=== PATIENT | male | born 1980 | race Caucasian/White ===

== ENCOUNTER 2022-08-18 10:47 | Observation (INO) | payer BC ==
[2022-08-18] MEDS ORDERED: SODIUM CHLORIDE 0.9% 500 ML INFUS.BAG IV ONE ×2 (11:41→14:55)
[2022-08-18 12:09] LABS: VENOUS BASE EXCESS -1.8 mmol/L (-2-2); VENOUS O2 SATURATION 38.9 % (70-80); VENOUS PCO2 51.5 mmHg (38-52); VENOUS PH 7.307 (7.310-7.410)
[2022-08-18 12:19] LABS: BASO % 0.7 % (0-2.0); EOS % 0.4 % (0-4.5); HEMATOCRIT 42.1 % (35.4-49); HEMOGLOBIN 13.7 GM/dL (11.7-16.9); LYMPH % 26.7 % (8-40); MCHC 32.6 g/dl (32.0-35.9); MEAN CELL VOLUME 85.9 fl (80-96); MEAN PLT VOLUME 9.6 fl (7.5-11.1); MONO % 8.3 % (3.8-10.2); NEUT % 63.9 % (42.8-82.8); PLATELET COUNT 204 10^3/uL (134-434); WHITE BLOOD COUNT 6.6 K/mm3 (4.0-10.0)
[2022-08-18 12:41] LABS: PH,URINE 5.5 (5.0-8.0); URINE APPEARANCE CLEAR; URINE BILIRUBIN NEGATIVE (NEGATIVE); URINE COLOR YELLOW; URINE GLUCOSE (UA) 3+ (NEGATIVE); URINE KETONE 1+ (NEGATIVE); URINE LEUK ESTERASE NEGATIVE (NEGATIVE); URINE NITRITE NEGATIVE (NEGATIVE); URINE PROTEIN NEGATIVE (NEGATIVE); URINE UROBILINOGEN 0.2 mg/dL (0.2-1.0)
[2022-08-18 12:42] LABS: CHLORIDE 94 mmol/L (98-107); SODIUM 136 mmol/L (136-145)
[2022-08-18 12:44] LABS: ALBUMIN 4.1 g/dl (3.4-5.0); ANION GAP 16 MMOL/L (8-16); CALCIUM 9.7 mg/dL (8.5-10.1); CO2 26 mmol/L (21-32)
[2022-08-18 12:45] LABS: BLOOD UREA NITROGEN 21.6 mg/dL (7-18)
[2022-08-18 12:47] LABS: CREATININE 1.4 mg/dL (0.55-1.3)
[2022-08-18 12:48] LABS: SGOT/AST 27 U/L (15-37); SGPT/ALT 57 U/L (13-61)
[2022-08-18 12:49] LABS: BILIRUBIN,TOTAL 0.7 mg/dL (0.2-1); TOT PROT 7.7 g/dl (6.4-8.2)
[2022-08-18 12:50] LABS: ALK PHOS 106 U/L (45-117)
[2022-08-18 12:57] LABS: GLUCOSE,RANDOM 707 mg/dL (74-106)
[2022-08-18] MEDS ORDERED: INSULIN (LEVEMIR) 100 UNITS/ML UNITS SQ ONE ×2 (14:56→16:04)
[2022-08-18 15:12] LABS: LDL CHOLESTEROL (ONLY SJRH) 165 mg/dL (5-100); TRIGLYCERIDES 377 mg/dL (0-150)
[2022-08-18 15:14] LABS: HDL CHOLESTEROL 26 mg/dL (40-60)
[2022-08-18 15:15] LABS: CHOLESTEROL 247 mg/dL (50-200)
[2022-08-18] MEDS ORDERED: METOCLOPRAMIDE HCL INJECTION 10 MG/2 ML VIAL IVPUSH PRN (15:37)
[2022-08-18] MEDS ORDERED: LACTATED RINGERS SOLUTION 1,000 ML/1,000 ML INFUS.BAG IV SCH (16:30)
[2022-08-18] MEDS: INSULIN SLIDING SCALE (NOVOLOG) 1 VIAL SQ SCH ×2 (19:20→22:25)
[2022-08-18 20:12] LABS: CALCIUM 8.8 mg/dL (8.5-10.1)
[2022-08-18 20:13] LABS: BLOOD UREA NITROGEN 15.1 mg/dL (7-18)
[2022-08-18 20:16] LABS: CREATININE 1.1 mg/dL (0.55-1.3)
[2022-08-18] MEDS: HEPARIN NA (PORCINE) 5,000 UNITS/ML 1ML VIAL SQ SCH (22:26)
[2022-08-18 23:16] LABS: MAGNESIUM 1.9 mg/dL (1.8-2.4)
[2022-08-19 03:22] VITALS: RESP 20
[2022-08-19 03:32] VITALS: BMI 35.4
[2022-08-19] MEDS: HEPARIN NA (PORCINE) 5,000 UNITS/ML 1ML VIAL SQ SCH ×2 (06:57→14:55)
[2022-08-19] MEDS: INSULIN SLIDING SCALE (NOVOLOG) 1 VIAL SQ SCH ×3 (06:57→16:54)
[2022-08-19] MEDS ORDERED: INSULIN (LEVEMIR) 100 UNITS/ML UNITS SQ SCH (09:00)
[2022-08-19 09:44] LABS: BASO % 0.7 % (0-2.0); EOS % 1.7 % (0-4.5); HEMATOCRIT 40.5 % (35.4-49); LYMPH % 39.8 % (8-40); MCH 27.5 pg (25.7-33.7); MCHC 32.1 g/dl (32.0-35.9); MEAN CELL VOLUME 85.6 fl (80-96); MEAN PLT VOLUME 10.1 fl (7.5-11.1); MONO % 8.3 % (3.8-10.2); NEUT % 49.5 % (42.8-82.8); PLATELET COUNT 207 10^3/uL (134-434); RBC 4.73 M/mm3 (4.00-5.60); RDW 12.9 % (11.9-15.9); WHITE BLOOD COUNT 5.8 K/mm3 (4.0-10.0)
[2022-08-19 10:22] LABS: ALBUMIN 3.4 g/dl (3.4-5.0); BLOOD UREA NITROGEN 14.5 mg/dL (7-18); MAGNESIUM 1.9 mg/dL (1.8-2.4)
[2022-08-19 10:23] LABS: PHOSPHOROUS 3.2 mg/dL (2.5-4.9)
[2022-08-19 10:24] LABS: BILIRUBIN,TOTAL 0.9 mg/dL (0.2-1); TOT PROT 6.8 g/dl (6.4-8.2)
[2022-08-19 15:47] VITALS: BP 127/77; PULSE 84; TEMP 97.6
[2022-08-19] MEDS ORDERED: ATORVASTATIN CA 40 MG TABLET (FP) PO SCH (22:00)
== END 2022-08-19 17:44 | disposition home or self-care (01) ==
LOC: JER 10:47 → JERBED 14:08 → UNDOADMOB 14:08 → INTOOBSV 14:08 → JERBED 15:37 → J8W 22:55 → JERBED 22:55
PROVIDERS: ADMIT Internal Medicine; ATTEND Nurse Practitioner Acute Care
PROC: 3E023GC Introduction of Other Therapeutic Substance into Muscle, Percutaneous Approach (ICD-10-PCS; principal; 2022-08-18)
PROC: 3E013VG Introduction of Insulin into Subcutaneous Tissue, Percutaneous Approach (ICD-10-PCS; 2022-08-18)
PROC: 3E0337Z Introduction of Electrolytic and Water Balance Substance into Peripheral Vein, Percutaneous Approach (ICD-10-PCS; 2022-08-18)
DX: E11.9 Type 2 diabetes mellitus without complications (principal); R63.1 Polydipsia; E66.8 Other obesity; Z68.35 Body mass index [BMI] 35.0-35.9, adult; Z87.891 Personal history of nicotine dependence; N17.9 Acute kidney failure, unspecified; E78.5 Hyperlipidemia, unspecified; Z29.8 Encounter for other specified prophylactic measures
CPT/HCPCS: 0241U-QW; 36415; 80048; 80053; 80061; 81003; 82010; 82043; 82570; 82803; 82962; 83036; 83735; 84100; 85025; 87086; 93005; 93010; 96360; 96372; 99285-25; G0378; J1644